=== PATIENT | female | born 1980 | race Caucasian/White ===

== ENCOUNTER 2017-05-23 19:51 | Emergency (ER) | payer MEDICARE ==
[~2017-05-23] VITALS: Ht 167.6 cm; Wt 90.0 kg
[2017-05-23 20:13] VITALS: BP 137/70; PULSE 67; RESP 18; TEMP 98; O2SAT 100
[2017-05-23] MEDS ORDERED: MORPHINE SULFATE 2 MG/ML INJ IV PUSH ONE (20:30)
[2017-05-23] MEDS ORDERED: ONDANSETRON HCL 4 MG/2 ML VIAL IV PUSH ONE (20:30)
[2017-05-23] MEDS ORDERED: SODIUM CHLORIDE 0.9% FLUSH 10 ML FLUSH IVF PRN (20:30)
--- NOTE | 2017-05-23 20:43 | PD ---
HPI Chief Complaint: Chest Pain Time Seen by Provider: 20:19 Travel History International Travel<30 days: No Contact w/Intl Traveler<30days: No Traveled to known affect area: No History of Present Illness HPI 36-year-old female presents to the emergency department via EMS for evaluation of left-sided chest pressure. Patient rates the pain 5/10 with radiation to the back in the left arm. She states the pain is pressure. She did nitrate times for home which did help relieve the pain slightly. She states she lays on her left-sided also help the pain. No exacerbating factors. Patient is from [place], she drove here earlier this month. She denies any history of DVT or PE. No leg edema. No hemoptysis. She has history of hysterectomy. She reports history of UT 3. Patient also reports history of celiac disease, Crohn 's disease, chronic back pain, PTSD, depression. Patient was given aspirin 162 mg by mouth by EMS. Moderate severity. No Associated symptoms. PFSH Social History Alcohol Use: Yes (rarely) Tobacco Use: Yes Substance Use: Yes (marijuana) Allergies-Medications (Allergen,Severity, Reaction): Coded Allergies: Penicillins (Unverified Adverse Reaction, Unknown, 05/23/17) Review of Systems Except as stated in HPI: all other systems reviewed are Neg Physical Exam Narrative GENERAL: Well-nourished, well-developed female patient, ambulatory. Afebrile. SKIN: Focused skin assessment warm/dry. HEAD: Normocephalic. Atraumatic. EYES: No scleral icterus. No injection or drainage. NECK: Supple, trachea midline. No JVD or lymphadenopathy. CARDIOVASCULAR: Regular rate and rhythm without murmurs, gallops, or rubs. Bilateral radial and pedal pulses are 2+. RESPIRATORY: Breath sounds equal bilaterally. No accessory muscle use. Lungs sounds are clear to auscultation. GASTROINTESTINAL: Abdomen soft, non-tender, nondistended. MUSCULOSKELETAL: No cyanosis, or edema. BACK: Nontender without obvious deformity. No CVA tenderness. Data Data Last Documented VS Vital Signs Date Time Temp Pulse Resp B/P (MAP) Pulse Ox O2 Delivery O2 Flow Rate FiO2 05/23/17 20:13 98.0 67 18 137/70 (92) 100 Orders Orders Electrocardiogram (05/23/17 20:25) Basic Metabolic Panel (Bmp) (05/23/17 20:25) B-Type Natriuretic Peptide (05/23/17 20:25) Ckmb (Isoenzyme) Profile (05/23/17 20:25) Complete Blood Count With Diff (05/23/17 20:25) D-Dimer (05/23/17 20:25) Magnesium (Mg) (05/23/17 20:25) Prothrombin Time / Inr (Pt) (05/23/17 20:25) Act Partial Throm Time (Ptt) (05/23/17 20:25) Troponin I (05/23/17 20:25) Chest, Single Ap (05/23/17 20:25) Ecg Monitoring (05/23/17 20:25) Bilateral Bp Monitoring (05/23/17 20:25) Iv Access Insert/Monitor (05/23/17 20:25) Oximetry (05/23/17 20:25) Oxygen Administration (05/23/17 20:25) Sodium Chloride 0.9% Flush (Ns Flush) (05/23/17 20:30) Morphine Inj (Morphine Inj) (05/23/17 20:30) Ondansetron Inj (Zofran Inj) (05/23/17 20:30) CKMB (05/23/17 20:37) CKMB% (05/23/17 20:37) Labs Laboratory Tests Test 05/23/17 20:37 White Blood Count 7.5 TH/MM3 Red Blood Count 4.20 MIL/MM3 Hemoglobin 12.7 GM/DL Hematocrit 38.3 % Mean Corpuscular Volume 91.3 FL Mean Corpuscular Hemoglobin 30.3 PG Mean Corpuscular Hemoglobin Concent 33.2 % Red Cell Distribution Width 13.1 % Platelet Count 257 TH/MM3 Mean Platelet Volume 9.5 FL Neutrophils (%) (Auto) 55.6 % Lymphocytes (%) (Auto) 36.4 % Monocytes (%) (Auto) 6.3 % Eosinophils (%) (Auto) 1.2 % Basophils (%) (Auto) 0.5 % Neutrophils # (Auto) 4.2 TH/MM3 Lymphocytes # (Auto) 2.7 TH/MM3 Monocytes # (Auto) 0.5 TH/MM3 Eosinophils # (Auto) 0.1 TH/MM3 Basophils # (Auto) 0.0 TH/MM3 CBC Comment DIFF FINAL Differential Comment Prothrombin Time 10.5 SEC Prothromb Time International Ratio 1.0 RATIO Activated Partial Thromboplast Time 27.3 SEC D-Dimer Quantitative (PE/DVT) 0.33 MG/L FEU Blood Urea Nitrogen 10 MG/DL Creatinine 0.59 MG/DL Random Glucose 86 MG/DL Calcium Level 8.5 MG/DL Magnesium Level 2.0 MG/DL Sodium Level 141 MEQ/L Potassium Level 3.8 MEQ/L Chloride Level 108 MEQ/L Carbon Dioxide Level 27.3 MEQ/L Anion Gap 6 MEQ/L Estimat Glomerular Filtration Rate 117 ML/MIN Total Creatine Kinase 113 U/L Creatine Kinase MB 1.2 NG/ML Troponin I LESS THAN 0.02 NG/ML B-Type Natriuretic Peptide 13 PG/ML MDM Medical Decision Making Medical Screen Exam Complete: Yes Emergency Medical Condition: Yes Medical Record Reviewed: Yes Interpretation(s) chest x-ray - CONCLUSION: 1. No acute cardiopulmonary disease. Differential Diagnosis ACS versus chest wall pain versus anxiety versus pneumonia versus pneumothorax versus PE Narrative Course 36-year-old female presents to the emergency department for evaluation of left- sided chest pressure that started earlier today, slightly relieved with nitroglycerin. She reports history of UT 3. EKG shows sinus rhythm, heart rate 69, no acute ST changes. CBC, BMP, BNP, CK, troponin, magnesium, PTT, PT/ INR, d-dimer ordered and pending. Chest x-ray is ordered and pending. Patient is given morphine 4 mg IV, Zofran 4 mg IV for continuing pain. CBC is unremarkable. BMP shows no acute abnormality. BNP is 13. CK is 113. Troponin is less than 0.02. Magnesium is 2.0. Coags are unremarkable. D- dimer is 0.33. Chest x-ray shows no acute cardiopulmonary disease. Due to patient's history with similar symptoms in the past when she had an UT, the patient needs to stay for repeat enzymes, be evaluated by the hair or beauty salon manager. I discussed this with the patient. 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 She would like to sign out AGAINST MEDICAL ADVICE. She is aware that I cannot rule out cardiac disease at this time she have any complication up to including . The patient states she understands, but has no one to watch her children. She is instructed to return immediate relief for any worsening symptoms. AMA: The risks of leaving against medical advice without further evaluation treatment were discussed with the patient. These risks include cardiac dysfunction, cardiac dysrhythmia, possible heart attack, possible stroke or . The patient indicated understanding of these risks and appeared to have the capacity to make this decision. Diagnosis Primary Impression: Left against medical advice Additional Impression: Chest pain Qualified Codes: R07.9 - Chest pain, unspecified Disposition: 07 AGAINST MEDICAL ADVICE Gabby Martin May 23, 2017 20:43
[2017-05-23 20:54] LABS: AUTOMATED NEUTROPHIL # 4.2 TH/MM3 (1.8-7.7); BASOPHIL % 0.5 % (0.0-2.0); EOSINOPHIL # 0.1 TH/MM3 (0-0.4); EOSINOPHIL % 1.2 % (0.0-4.0); HEMATOCRIT 38.3 % (35.0-46.0); HEMOGLOBIN 12.7 GM/DL (11.6-15.3); LYMPH % 36.4 % (9.0-44.0); LYMPHOCYTE # 2.7 TH/MM3 (1.0-4.8); MEAN CELL VOLUME 91.3 FL (80.0-100.0); MEAN CORPUSCULAR HEMOGLOBIN 30.3 PG (27.0-34.0); MEAN CORPUSCULAR HGB CONC 33.2 % (32.0-36.0); MEAN PLATELET VOLUME 9.5 FL (7.0-11.0); MONO % 6.3 % (0.0-8.0); MONOCYTE # 0.5 TH/MM3 (0-0.9); NEUT % 55.6 % (16.0-70.0); PLATELET COUNT 257 TH/MM3 (150-450); RED CELL DISTRIBUTION WIDTH 13.1 % (11.6-17.2); WHITE BLOOD COUNT 7.5 TH/MM3 (4.0-11.0)
[2017-05-23 21:07] LABS: PROTHROMBIN TIME - PATIENT 10.5 SEC (9.8-11.6)
[2017-05-23 21:08] LABS: D-DIMER 0.33 MG/L FEU (0.00-0.50)
[2017-05-23 21:10] LABS: BICARBONATE 27.3 MEQ/L (21.0-32.0); BLOOD UREA NITROGEN 10 MG/DL (7-18); CALCIUM 8.5 MG/DL (8.5-10.1); CHLORIDE 108 MEQ/L (98-107); CREATININE 0.59 MG/DL (0.50-1.00); GLOMERULAR FILTRATION RATE 117 ML/MIN (>89); GLUCOSE,RANDOM 86 MG/DL (74-106); SODIUM (NA) 141 MEQ/L (136-145)
--- NOTE | 2017-05-23 21:12 | RADRPT ---
EXAM DATE/TIME: 05/23/2017 20:42 [facility] COMPARISON: No previous studies available for comparison. INDICATIONS : Chest pain for 2 hours MEDICAL HISTORY : None. SURGICAL HISTORY : None. ENCOUNTER: Initial ACUITY: 1 day PAIN SCORE: 7/10 LOCATION: Left chest FINDINGS: A single view of the chest demonstrates the lungs to be symmetrically aerated without evidence of mas s, infiltrate or effusion. The cardiomediastinal contours are unremarkable. Osseous structures are intact. CONCLUSION: 1. No acute cardiopulmonary disease. Sly Stanley MD on May 23, 2017 at 21:10 Board Certified Radiologist. This report was verified electronically.
[2017-05-23 21:15] LABS: TROPONIN I LESS THAN 0.02 NG/ML (0.02-0.05)
--- NOTE | 2017-05-24 23:02 | EKG ---
Date Performed: 05/23/2017 Time Performed: 20:08:28 PTAGE: 36 years EKG: Sinus rhythm WITH SINUS ARRHYTHMIA NORMAL ECG NO PREVIOUS TRACING DOCTOR: García Lassiter Interpretating Date/Time 05/24/2017 23:01:53
== END 2017-05-23 22:39 | disposition left against medical advice (07) ==
LOC: NEPE 19:51
DX: R07.9 Chest pain, unspecified (principal); Z72.0 Tobacco use
CPT/HCPCS: 71010; 80048; 82550; 82552; 83735; 83880; 84484; 85025; 85379; 85610; 85730; 93005; 96374; 96375; 99285; J2270; J2405